=== PATIENT | male | born 1955 | race Caucasian/White ===

== ENCOUNTER 2019-12-10 13:01 | Outpatient (CLI) | payer MEDICARE | END 2019-12-10 13:02 | disposition home or self-care (01) | LOC: LABBT 13:01 | PROVIDERS: ATTEND Orthopaedic Surgery | DX: Z01.812 Encounter for preprocedural laboratory examination (principal); M17.0 Bilateral primary osteoarthritis of knee | CPT/HCPCS: 87081 ==

== ENCOUNTER 2019-12-22 05:30 | Day surgery (SDC) | payer MEDICARE ==
[2019-12-22] MEDS ORDERED: Tranexamic Acid 1,000 MG/10 ML VIAL ONE (05:56)
[2019-12-22] MEDS ORDERED: Sodium Chloride 0.9% 100 ML ONE (05:56)
[2019-12-22] MEDS ORDERED: Midazolam HCl 2 mg/2 ml Vial ONE (06:21)
[2019-12-22] MEDS ORDERED: Fentanyl 100 MCG/2 ML VIAL ONE ×5 (06:21→10:12)
[2019-12-22] MEDS ORDERED: Lidocaine 1% (PF) 30 ML VIAL ONE (06:21)
[2019-12-22] MEDS ORDERED: Lidocaine 1% w/Epinephrine 1:100K 20 ML VIAL ONE (06:36)
[2019-12-22] MEDS ORDERED: Bupivacaine 0.25% HCL 30 ML VIAL ONE (06:36)
[2019-12-22] MEDS ORDERED: Fentanyl 100 MCG/2 ML VIAL IV PRN (07:15)
[2019-12-22] MEDS ORDERED: Ropivacaine HCl/PF 250 ML in Premix Bag 1 BAG NERVE BLCK SCH (07:15)
[2019-12-22] MEDS ORDERED: Ondansetron PF 4 MG/2 ML Vial IVP PRN ×2 (07:15→09:17)
[2019-12-22] MEDS ORDERED: HYDROcodone/Acetaminophen 10/325 mg Tablet PO PRN ×3 (07:15→09:17)
[2019-12-22] MEDS ORDERED: Acetaminophen 325 MG TAB PO PRN ×2 (07:15→09:17)
[2019-12-22] MEDS ORDERED: Promethazine HCl 25 MG/ML VIAL IM PRN ×3 (07:15→09:22)
[2019-12-22] MEDS ORDERED: Zolpidem Tartrate 5 MG TAB PO PRN ×2 (07:15→09:17)
[2019-12-22] MEDS ORDERED: traMADol HCl 50 MG TAB PO PRN ×3 (07:15→09:17)
[2019-12-22] MEDS ORDERED: Ketorolac Tromethamine 30 MG/ML VIAL IVP PRN (09:17)
[2019-12-22] MEDS ORDERED: diphenhydrAMINE 25 MG CAP PO PRN (09:17)
[2019-12-22] MEDS ORDERED: Fentanyl 100 MCG/2 ML VIAL SLOW IVP PRN ×2 (09:17)
[2019-12-22] MEDS ORDERED: Promethazine HCl 25 MG/ML VIAL SLOW IVP PRN (09:22)
[2019-12-22] MEDS ORDERED: Ondansetron HCl/PF 4 MG/2 ML Vial IVP PRN (09:22)
[2019-12-22] MEDS ORDERED: PROPOFOL 200 MG/20 ML VIAL ONE (09:23)
[2019-12-22] MEDS ORDERED: EPHEDRINE 25 MG/5 ML SYRINGE ONE (09:23)
[2019-12-22] MEDS ORDERED: Metoclopramide HCl 10 MG/2 ML VIAL ONE (09:23)
[2019-12-22] MEDS ORDERED: Lidocaine 1% PF 5 ML VIAL ONE (09:23)
[2019-12-22] MEDS ORDERED: Bupivacaine HCl 0.5%/Epinephrine 1:200,000/PF 30 ml Vial ONE (09:23)
[2019-12-22] MEDS ORDERED: Ondansetron PF 4 MG/2 ML Vial ONE (09:23)
[2019-12-22] MEDS ORDERED: Ropivacaine 0.2% HCl/PF (40 MG/20 ML VIAL) ONE (09:23)
[2019-12-22] MEDS ORDERED: Aspirin 81 mg Enteric Coated Tablet PO SCH (09:30)
--- NOTE | 2019-12-22 10:01 | RAD ---
EXAM: 2 views of the right knee HISTORY: Knee arthroplasty COMPARISON: None FINDINGS: No knee effusion is seen. The patient is status post knee arthroplasty without perihardware lucency or fracture. Air in the soft tissues is from recent surgery. Vascular calcifications are seen. IMPRESSION: Status post knee arthroplasty without evidence of complication.
[2019-12-22] MEDS: HYDROcodone/Acetaminophen 10/325 mg Tablet PO PRN ×2 (12:18→18:18)
[2019-12-22] MEDS: CEFAZOLIN 2 GM in Premix Bag 1 BAG IVPB SCH ×2 (14:50→23:54)
[2019-12-22 15:14] VITALS: BMI 37.5
--- NOTE | 2019-12-22 15:26 | CON ---
DATE OF CONSULTATION: PRIMARY CARE PROVIDER: None. CHIEF COMPLAINT: Management of medical problems. HISTORY OF PRESENT ILLNESS: Mr. Pearce is a pleasant 63-year-old gentleman, who was seen at [facility] on December 22, 2019. Earlier today, he underwent right knee surgery. Hospitalist Service was consulted for management of medical comorbidities. Mr. Pearce denies any chest pain or shortness of breath. He denies any fevers or chills. He denies any nausea, vomiting, or abdominal pain. REVIEW OF SYSTEMS: All systems were reviewed and found to be negative except for the pertinent positives mentioned above. PAST MEDICAL HISTORY: He denies any significant past medical history. PAST SURGICAL HISTORY: Tonsillectomy, circumcision, bilateral shoulder surgery, bilateral knee surgery, umbilical hernia repair, and gastric sleeve surgery 2 years ago. FAMILY HISTORY: No family history of coronary artery disease. SOCIAL HISTORY: The patient denies tobacco use, alcohol use, or recreational drug use. ALLERGIES: NO KNOWN DRUG ALLERGIES. CURRENT MEDICATIONS: 1. Multivitamins one tablet daily. 2. Probiotic one tablet daily. 3. Protein powder 454 g daily. 4. Vitamin B6 one tablet daily. 5. Zinc, and vitamin C one tablet daily. PHYSICAL EXAMINATION: GENERAL: On examination, Mr. Pearce is awake and alert, not in acute distress. VITAL SIGNS: Stable. EYES: No scleral icterus. No conjunctival pallor. ENT: Moist mucosal membranes. No oropharyngeal erythema or exudates. NECK: Supple and nontender. Trachea is midline. RESPIRATORY: Accessory muscles of breathing are not active. Chest wall movements are symmetric bilaterally. Lungs are clear to auscultation without wheeze, rhonchi, or crepitations. CARDIOVASCULAR: S1 and S2 are heard, regular. ABDOMEN: Soft and nontender. Bowel sounds are heard. NEUROLOGIC: Cranial nerves 2 through 12 are intact. MUSCULOSKELETAL: Status post right knee surgery. SKIN: No rashes. LYMPHATIC: No cervical lymphadenopathy. PSYCHIATRIC: Normal mood, normal affect. The patient is oriented to person, place, and time. LABORATORY DATA: Mr. Pearce's labs and investigations were reviewed. X-ray of the right knee showed status post knee arthroplasty without evidence of complication. ASSESSMENT AND PLAN: Mr. Pearce is a pleasant 63-year-old gentleman, who was seen at [facility] on December 22, 2019. His problem list includes: 1. Arthritis: Mr. Pearce was admitted for right knee arthritis. He is now status post knee arthroplasty. 2. History of gastric sleeve surgery: We will continue his vitamin supplements while he is in the hospital. 3. Deep venous thrombosis prophylaxis and pain management per Orthopedic Surgery Service. Many thanks for allowing me to participate in your patient's care. Please feel free to contact me with any questions or concerns. LEVEL OF RISK: Low. LEVEL OF COMPLEXITY: Low. Job ID: [id number] [facility]
[2019-12-22] MEDS: Dextrose 5 %-0.45 % NaCl 1,000 ML IV SCH ×2 (17:23→19:27)
[2019-12-22] MEDS: Aspirin 81 mg Enteric Coated Tablet PO SCH (21:22)
[2019-12-23] MEDS: HYDROcodone/Acetaminophen 10/325 mg Tablet PO PRN ×5 (03:43→22:10)
[2019-12-23 05:16] LABS: Hemoglobin 11.5 g/dL (14.0-18.0); Mean Corpuscular HGB CONC 33.9 g/dL (32.0-36.0); Mean Corpuscular Hemoglobin 32.9 pg (27.0-31.0); Mean Corpuscular Volume 97.2 fL (78.0-98.0); Mean Platelet Volume 8.1 fL (7.4-10.4); Platelet Count 177 thou/uL (130-400); RBC Distribution Width 12.4 % (11.5-14.5); Red Blood Cell (RBC) Count 3.49 mill/uL (4.70-6.10); White Blood Cell (WBC) Count 8.1 thou/uL (4.8-10.8)
[2019-12-23] MEDS: Dextrose 5 %-0.45 % NaCl 1,000 ML IV SCH ×2 (05:46→17:33)
[2019-12-23] MEDS: Aspirin 81 mg Enteric Coated Tablet PO SCH ×2 (08:13→20:55)
[2019-12-23] MEDS: Lactinex Tablet PO SCH (08:13)
[2019-12-23] MEDS: Senokot S 8.6-50 MG TAB PO SCH ×2 (08:13→20:55)
[2019-12-23] MEDS: pyridOXINE 50 MG (B6) TAB PO SCH (08:13)
[2019-12-23] MEDS: Multivitamin W/ Minerals 1 TAB PO SCH (08:13)
[2019-12-23] MEDS: Ferrous Gluconate 324 MG TAB PO SCH ×2 (08:14→18:13)
[2019-12-23] MEDS ORDERED: ZINC PO SCH (09:00)
[2019-12-23] MEDS ORDERED: ASCORBIC ACID PO SCH (09:00)
[2019-12-23] MEDS ORDERED: MANGANESE PO SCH (09:00)
--- NOTE | 2019-12-23 11:32 | OP ---
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 PROCEDURE PERFORMED: Right total knee arthroplasty. CAR WASH ATTENDANT: Geovanni Nicolas PA-C. ANESTHESIA: LMA, single-shot sciatic and adductor canal. ESTIMATED BLOOD LOSS: 100 mL. TOURNIQUET TIME: 86 minutes. ANTIBIOTICS: Ancef 2 g, vancomycin 2 g, and TXA 1 g. IMPLANTS: The patient has Ariton Triathlon size 7 CR femur, 6 tibial base plate, A32 patella, size 6, 11 mm CS poly. COMPLICATIONS: None. HISTORY OF PRESENT ILLNESS: Mr. Pearce is a 63-year-old male, history of bariatric surgery, presents after right knee osteoarthritis, has failed conservative measures. History of previous knee scopes in the past. I discussed with the patient risks and benefits of a right total knee arthroplasty to include pain, scar, bleeding, infection, damage to vital structures, decreased range of motion and strength, fracture below the stem, continued pain, despite surgical intervention loss of life or limb. The patient understood the risks and benefits of the procedure and elected to proceed. DESCRIPTION OF PROCEDURE: Time-out was performed designating the patient's right lower extremity as the operative site based on site, consents, and marking. After time-out, the patient's right upper extremity was prepped and draped in sterile fashion. Tourniquet was brought up and left for 86 minutes. Anterior midline approach, medial patellar arthrotomy was performed, excised the medial fat pad, took down the medial soft tissue release. We had to rongeur of some very large osteophytes off the patella. We used an osteotome to knock the osteophytes off the medial and lateral aspects of the superior pouch of the patella, loose bodies of the joint, everted the patella and started mapping out the femur, mapped the femur, cut 11, 6, 0 degrees varus/valgus and 5 degrees slope, cut the distal femur, placed our 3-degree external rotation guide in position, pinned it into position and mapped out the size 7, placed our box cut and removed all our osteophytes. We then opened up the patient's notch with an osteotome to help position, placed our pickle fork for PCL retractor in position, brought the tibia into view and cut actually with 4 degrees of slope, removed all the bone. We removed all our osteophytes posteriorly as well as osteophytes medially, leaving some medial osteophytes in place, being happy with this, we placed our six tray, which we not completely medialized, but closed the medial joint line in case we needed to monitor osteophytes, tentative position, placed our femur which tracked good flexion and extension. The patient had overall good flexion and extension and we actually had to go up the size 11 poly to get stability of our medial MCL, everted patella. We cut down and cut across, going for about 24 down to 12 and a little high spot approximately about 14. We placed our A32 patella tracked well overall good alignment. We were happy with that. We everted, we placed, drilled our lugs for femur, cut our keel, removed all implants, cemented the tibia, removed excess cement, placed the poly, cementing the femur, removed excess cement. Cemented the patella, removed excess cement, ensured that all the cement was gone. There was no other gross debris. We then washed and closed the arthrotomy with #2 Vicryl #2 Stratafix, 0 Stratafix, 2-0 Stratafix and glue for skin. The patient will be admitted to [facility], received preop antibiotics, weightbear as tolerated and will follow inhouse. Job ID: [id number] [facility]
[2019-12-24] MEDS: Dextrose 5 %-0.45 % NaCl 1,000 ML IV SCH (00:24)
[2019-12-24] MEDS: HYDROcodone/Acetaminophen 10/325 mg Tablet PO PRN ×2 (02:17→06:05)
[2019-12-24 05:17] LABS: Hemoglobin 10.2 g/dL (14.0-18.0); Mean Corpuscular HGB CONC 32.2 g/dL (32.0-36.0); Mean Corpuscular Hemoglobin 31.2 pg (27.0-31.0); Mean Corpuscular Volume 96.9 fL (78.0-98.0); Platelet Count 147 thou/uL (130-400); RBC Distribution Width 12.3 % (11.5-14.5); Red Blood Cell (RBC) Count 3.28 mill/uL (4.70-6.10); White Blood Cell (WBC) Count 9.5 thou/uL (4.8-10.8)
[2019-12-24] MEDS: Lactinex Tablet PO SCH (07:58)
[2019-12-24] MEDS: Ferrous Gluconate 324 MG TAB PO SCH (07:58)
[2019-12-24] MEDS: Aspirin 81 mg Enteric Coated Tablet PO SCH (07:58)
[2019-12-24] MEDS: Multivitamin W/ Minerals 1 TAB PO SCH (07:58)
[2019-12-24] MEDS: pyridOXINE 50 MG (B6) TAB PO SCH (07:58)
[2019-12-24] MEDS: Senokot S 8.6-50 MG TAB PO SCH (07:58)
[2019-12-24 10:26] VITALS: BP 135/63; TEMP 98.3
== END 2019-12-24 12:08 | disposition home or self-care (01) ==
LOC: SDC 05:30 → SJJU 11:02 → SDC 12-24 12:08
PROVIDERS: ATTEND Orthopaedic Surgery
PROC: 0SRC0J9 Replacement of Right Knee Joint with Synthetic Substitute, Cemented, Open Approach (ICD-10-PCS; principal; 2019-12-22)
PROC: 3E0T3BZ Introduction of Anesthetic Agent into Peripheral Nerves and Plexi, Percutaneous Approach (ICD-10-PCS; 2019-12-22)
PROC: 3E0T3BZ Introduction of Anesthetic Agent into Peripheral Nerves and Plexi, Percutaneous Approach (ICD-10-PCS; 2019-12-22)
DX: M17.0 Bilateral primary osteoarthritis of knee (principal); M21.161 Varus deformity, not elsewhere classified, right knee; G89.18 Other acute postprocedural pain; Z79.899 Other long term (current) drug therapy; Z98.84 Bariatric surgery status; Z98.890 Other specified postprocedural states
CPT/HCPCS: 27447; 64445; 64448; 73560; 85027; 97110; 97116 ×3; 97139 ×4; 97150 ×2; 97530 ×2; 98961; C1713; C1776; 36415; J0670; J0690; J2001; J2250; J2405; J2704; J2765; J2795; J3010; J3370; J3490; J7050; S0020

== ENCOUNTER 2020-04-01 16:00 | Inpatient (IN) | payer MEDICARE, OTHER ==
[2020-04-08 16:45] LABS: #Eosinphils 0.3 thou/uL (0.0-0.7); #Lymphocytes 1.5 thou/uL (1.20-3.40); #Monocytes 0.5 thou/uL (0.11-0.59); #Neutrophils 3.6 thou/uL (1.40-6.50); %Basophils 0.8 % (0.0-1.0); %Eosinophils 5.4 % (0.0-10.0); %Monocytes 9.1 % (0.0-10.0); %Neutrophils 59.8 % (42.0-75.0); INR-International Normal Ratio 1.1; Mean Corpuscular HGB CONC 33.5 g/dL (32.0-36.0); Mean Corpuscular Volume 95.7 fL (78.0-98.0); Mean Platelet Volume 8.9 fL (7.4-10.4); Platelet Count 220 thou/uL (130-400); RBC Distribution Width 13.1 % (11.5-14.5); Red Blood Cell (RBC) Count 4.36 mill/uL (4.70-6.10)
[2020-04-08 16:49] LABS: Anion Gap 11 mmol/L (10-20); BUN (Urea Nitrogen) 20 mg/dL (8.4-25.7); Calc. Creatinine Clearance 0 mL/min (70-130); Calcium 9.5 mg/dL (7.8-10.44); Carbon Dioxide 28 mmol/L (23-31); Chloride 106 mmol/L (98-107); Estimated GFR-MDRD Greater than 90; Glucose 92 mg/dL (80-115); Potassium 4.8 mmol/L (3.5-5.1); Sodium 140 mmol/L (136-145)
[2020-04-09 12:16] LABS: SARS-CoV-2 MS2 Positive; SARS-CoV-2 N Gene Negative; SARS-CoV-2 S Gene Negative; SARS-CoV-2 orf1ab Negative
[2020-04-12] MEDS ORDERED: Tranexamic Acid 1,000 MG/10 ML VIAL ONE (09:58)
[2020-04-12] MEDS ORDERED: Sodium Chloride 0.9% 100 ML ONE (09:59)
[2020-04-12] MEDS ORDERED: Fentanyl 100 MCG/2 ML VIAL ONE ×3 (10:34→15:18)
[2020-04-12] MEDS ORDERED: Midazolam HCl 2 mg/2 ml Vial ONE (10:34)
[2020-04-12] MEDS ORDERED: EPHEDRINE 25 MG/5 ML SYRINGE ONE (10:54)
[2020-04-12] MEDS ORDERED: Ondansetron PF 4 MG/2 ML Vial ONE (10:54)
[2020-04-12] MEDS ORDERED: Ketorolac Tromethamine 30 MG/ML VIAL ONE (10:54)
[2020-04-12] MEDS ORDERED: PROPOFOL 200 MG/20 ML VIAL ONE (10:54)
[2020-04-12] MEDS ORDERED: Dexamethasone 20 MG/5 ML VIAL ONE (10:54)
[2020-04-12] MEDS ORDERED: Glycopyrrolate 0.2 MG/ML 5 ML SYRINGE ONE (10:54)
[2020-04-12] MEDS ORDERED: PHENYLEPHRINE-NS 100 MCG/ML 10 ML SYRINGE ONE (10:54)
[2020-04-12] MEDS ORDERED: Ropivacaine 0.2% HCl/PF (40 MG/20 ML VIAL) ONE (10:59)
[2020-04-12] MEDS ORDERED: Ropivacaine 0.5% HCl/PF (150 MG/30 ML VIAL) ONE (10:59)
[2020-04-12] MEDS ORDERED: EPINEPHrine 1 MG/10 ML Abboject SYRINGE ONE (10:59)
[2020-04-12] MEDS ORDERED: Bupivacaine 0.25% HCL 30 ML VIAL ONE (11:47)
[2020-04-12] MEDS ORDERED: EPINEPHrine 1 MG/ML AMP ONE (11:47)
[2020-04-12] MEDS ORDERED: Ondansetron PF 4 MG/2 ML Vial IVP PRN ×2 (12:01→13:54)
[2020-04-12] MEDS ORDERED: HYDROcodone/Acetaminophen 10/325 mg Tablet PO PRN ×3 (12:01→13:54)
[2020-04-12] MEDS ORDERED: Zolpidem Tartrate 5 MG TAB PO PRN ×2 (12:01→13:54)
[2020-04-12] MEDS ORDERED: Promethazine HCl 25 MG/ML VIAL IM PRN ×3 (12:01→13:54)
[2020-04-12] MEDS ORDERED: traMADol HCl 50 MG TAB PO PRN ×3 (12:01→13:54)
[2020-04-12] MEDS ORDERED: Ropivacaine HCl/PF 250 ML in Premix Bag 1 BAG NERVE BLCK SCH (12:01)
[2020-04-12] MEDS ORDERED: Fentanyl 100 MCG/2 ML VIAL IV PRN (12:02)
[2020-04-12] MEDS ORDERED: Promethazine HCl 25 MG/ML VIAL SLOW IVP PRN (12:26)
[2020-04-12] MEDS ORDERED: Ondansetron HCl/PF 4 MG/2 ML Vial IVP PRN (12:26)
[2020-04-12] MEDS ORDERED: Lidocaine 1% w/Epinephrine 1:100K 20 ML VIAL ONE (12:32)
[2020-04-12] MEDS ORDERED: Ketorolac Tromethamine 30 MG/ML VIAL IVP PRN (13:54)
[2020-04-12] MEDS ORDERED: Acetaminophen 325 MG TAB PO PRN (13:54)
[2020-04-12] MEDS ORDERED: diphenhydrAMINE 25 MG CAP PO PRN (13:54)
[2020-04-12] MEDS ORDERED: Fentanyl 100 MCG/2 ML VIAL SLOW IVP PRN ×2 (13:54)
--- NOTE | 2020-04-12 14:51 | RAD ---
XR Knee Lt 2 View HISTORY: Status post left TKA FINDINGS: There are recent postoperative changes of total knee arthroplasty in good position and alignment. Sof t tissue air is present.
[2020-04-12] MEDS ORDERED: Ropivacaine 0.2% 550 ML 550 ML NERVE BLCK SCH (15:34)
--- NOTE | 2020-04-12 16:24 | OP ---
DATE OF PROCEDURE: 04/12/2020 PREOPERATIVE DIAGNOSIS: Left knee osteoarthritis. POSTOPERATIVE DIAGNOSIS: Left knee osteoarthritis. PROCEDURE PERFORMED: Left total knee arthroplasty. SURGEON: James Moreno MD ENGINEERING INSPECTION ASSISTANT: Darrin Nicolas. ANESTHESIA: Dr. Cox. The patient received an LMA with an adductor canal and single shot sciatic. ESTIMATED BLOOD LOSS: Less than 100 mL. TOURNIQUET TIME: 76 minutes at 300 mmHg. ANTIBIOTICS: Ancef, vancomycin 2 g, and TXA 1 g. IMPLANTS: Size 7 base plate, size 7 CR femur, 7 x 13 mm poly. COMPLICATIONS: None. HISTORY OF PRESENT ILLNESS: Mr. Pearce is a 64-year-old male, history of previous right total knee arthroplasty. The patient desired to have his left total knee replaced. I discussed risks and benefits of surgery, pain, scar, bleeding, infection, damage to vital structures, decreased range of motion and strength, continued pain despite surgical intervention, loss of life or limb, blood clots, wound complications. The patient understood these risks and benefits and elected to proceed. DESCRIPTION OF PROCEDURE: Time-out was performed designating the patient's left lower extremity as the operative site based on site, consents, marking, and procedure. After time-out was performed designating the left lower extremity as the operative site, he received preoperative antibiotics. With anterior midline approach, medial patellar arthrotomy was made. A small rent was made in the distal patella, which was over sewed. I everted the patella, excised the fat pad, did medial soft tissue release, did not take any of the medial osteophytes down. We took down synovium, exposed the distal femur, took some of the osteophytes, pinned our jig into place, cut 9, 4, we increased by 2 mm, 0 degrees of varus and valgus, and 5 degrees of slope. We took 2 more mm for 11 on high side. We then moved and placed our 3-degree external rotation guide in position, pinned the block, measured to a size 7, cut our tibia, anterior, posterior, and chamfer cuts, removed the osteophytes, moved to our tibia, pinned our tray into place. There was a large posteromedial defect within the tibia. We cut 2 and 4, with 0 degrees of varus and valgus and 4 degrees of slope. We were able to get the majority of that cut. We had good overall mobility, therefore we elected to decompress the posterior compartments of menisci, we removed a portion of the osteophytes medially and not entirety of it. We decompressed the PCL, which was still intact. We then pinned our size 7 tray into position. We placed 11 and ultimately 13 mm poly, trialed, had good varus and valgus in the flexion and extension. We everted the patella, cut and sized for an A35 patella and liked the overall tracking. We removed the implants, we cemented our tibia, placed our poly, cemented our femur, removed all excess, placed our patella, removed the excess, washed, closed the arthrotomy with #2 Vicryl, 2 Stratafix, 0 Stratafix, 2-0 Stratafix, and glue. The patient will be weightbearing as tolerated and admitted per [facility]'s postop protocol. Job ID: [id number] [facility]
[2020-04-12] MEDS: Ketorolac Tromethamine 30 MG/ML VIAL IVP SCH (17:22)
[2020-04-12] MEDS: CEFAZOLIN 2 GM in Premix Bag 1 BAG IVPB SCH (17:23)
[2020-04-12] MEDS: Sodium Chloride 0.9% 1,000 ML IV SCH (18:08)
[2020-04-12] MEDS: Aspirin 81 mg Enteric Coated Tablet PO SCH (20:47)
[2020-04-12] MEDS: HYDROcodone/Acetaminophen 10/325 mg Tablet PO PRN (22:10)
[2020-04-13] MEDS: Ketorolac Tromethamine 30 MG/ML VIAL IVP SCH ×5 (00:37→23:38)
[2020-04-13] MEDS: HYDROcodone/Acetaminophen 10/325 mg Tablet PO PRN ×5 (02:14→19:46)
[2020-04-13] MEDS: CEFAZOLIN 2 GM in Premix Bag 1 BAG IVPB SCH (02:16)
[2020-04-13] MEDS: Sodium Chloride 0.9% 1,000 ML IV SCH ×3 (02:46→20:20)
[2020-04-13 05:51] LABS: Hemoglobin 11.5 g/dL (14.0-18.0); Mean Corpuscular HGB CONC 33.1 g/dL (32.0-36.0); Mean Corpuscular Volume 96.7 fL (78.0-98.0); Mean Platelet Volume 8.9 fL (7.4-10.4); Platelet Count 142 thou/uL (130-400); RBC Distribution Width 12.7 % (11.5-14.5); White Blood Cell (WBC) Count 9.9 thou/uL (4.8-10.8)
[2020-04-13] MEDS: Senokot S 8.6-50 MG TAB PO SCH ×2 (08:54→19:45)
[2020-04-13] MEDS: Ferrous Gluconate 324 MG TAB PO SCH ×2 (08:55→18:16)
[2020-04-13] MEDS: Multivitamin W/ Minerals 1 TAB PO SCH (08:55)
[2020-04-13] MEDS: Aspirin 81 mg Enteric Coated Tablet PO SCH ×2 (08:55→19:45)
[2020-04-13 12:25] VITALS: BMI 36.3
[2020-04-14] MEDS: HYDROcodone/Acetaminophen 10/325 mg Tablet PO PRN ×3 (02:37→10:19)
[2020-04-14 06:05] LABS: Hemoglobin 10.4 g/dL (14.0-18.0); Mean Corpuscular HGB CONC 32.6 g/dL (32.0-36.0); Mean Corpuscular Hemoglobin 31.1 pg (27.0-31.0); Mean Corpuscular Volume 95.5 fL (78.0-98.0); Mean Platelet Volume 8.5 fL (7.4-10.4); Platelet Count 147 thou/uL (130-400); RBC Distribution Width 12.8 % (11.5-14.5); Red Blood Cell (RBC) Count 3.34 mill/uL (4.70-6.10); White Blood Cell (WBC) Count 5.6 thou/uL (4.8-10.8)
[2020-04-14] MEDS: Sodium Chloride 0.9% 1,000 ML IV SCH (06:27)
[2020-04-14] MEDS: Ketorolac Tromethamine 30 MG/ML VIAL IVP SCH (06:29)
[2020-04-14 08:06] VITALS: BP 121/64; TEMP 97.8
[2020-04-14] MEDS: Multivitamin W/ Minerals 1 TAB PO SCH (09:13)
[2020-04-14] MEDS: Ferrous Gluconate 324 MG TAB PO SCH (09:13)
[2020-04-14] MEDS: Aspirin 81 mg Enteric Coated Tablet PO SCH (09:13)
[2020-04-14] MEDS: Senokot S 8.6-50 MG TAB PO SCH (09:13)
== END 2020-04-14 10:30 | disposition home or self-care (01) | DRG 470 ==
LOC: SJJU 04-12 08:15 → SURG B 04-12 16:25
PROVIDERS: ADMIT Orthopaedic Surgery; ATTEND Orthopaedic Surgery
PROC: 0SRD0J9 Replacement of Left Knee Joint with Synthetic Substitute, Cemented, Open Approach (ICD-10-PCS; principal; 2020-04-14)
DX: M17.0 Bilateral primary osteoarthritis of knee (principal); Z96.651 Presence of right artificial knee joint; Z98.84 Bariatric surgery status; Z87.891 Personal history of nicotine dependence; Z90.49 Acquired absence of other specified parts of digestive tract
CPT/HCPCS: 36415; 80048; 85025; 85027; 85610; 86850; 86900; 86901; 87081; 87635; A4306; C1713; C1776; J0171; J0690; J1100; J1885; J2250; J2405; J2704; J2795; J3010; J3370; J3490; J7030; S0020; U0003

== ENCOUNTER 2020-04-08 07:09 | Outpatient (CLI) | payer MEDICARE, OTHER ==
--- NOTE | 2020-04-08 15:53 | RAD ---
SINGLE VIEW OF THE CHEST: 04/08/20 COMPARISON: None. HISTORY: Preoperative radiograph. FINDINGS: Single view of the chest shows a normal sized cardiomediastinal silhouette. There is no evidence of c onsolidation, mass, or pleural effusion. The bones are unremarkable. IMPRESSION: No evidence of acute cardiopulmonary disease. POS: EAA
== END 2020-04-08 07:10 | disposition home or self-care (01) ==
LOC: LABBT 07:09
PROVIDERS: ATTEND Orthopaedic Surgery
DX: Z01.818 Encounter for other preprocedural examination (principal); M17.0 Bilateral primary osteoarthritis of knee
CPT/HCPCS: 71045; 93005; 93010

== ENCOUNTER 2022-03-02 12:25 | Outpatient (CLI) | payer MEDICARE | END 2022-03-02 12:26 | disposition home or self-care (01) | LOC: ULT 12:25 | PROVIDERS: ATTEND Nurse Practitioner Family | DX: R01.1 Cardiac murmur, unspecified (principal); I08.0 Rheumatic disorders of both mitral and aortic valves | CPT/HCPCS: 93306 ==